=== PATIENT | female | born 1980 | race Caucasian/White ===

== ENCOUNTER 2016-09-19 08:39 | Emergency (ER) | payer BC ==
--- NOTE | 2016-09-19 09:41 | UC ---
Respiratory Complaint HPI - HPI Summary HPI Summary: ST x 1week, now with left ear pain and cough. No fever. Works in the school district. - History of Current Complaint Chief Complaint: UCRespiratory Stated Complaint: SORE THROAT,COUGH,CONGESTION,EAR PAIN Time Seen by Provider: 09/19/16 09:33 Hx Obtained From: Patient Hx Last Menstrual Period: Mirena IUD Onset/Duration: Gradual Onset, Lasting Days, Still Present Timing: Constant Severity Initially: Moderate Severity Currently: Moderate Pain Intensity: 3 Pain Scale Used: 0-10 Numeric Character: Sputum Description: - yellow Aggravating Factors: Nothing Alleviating Factors: Nothing Associated Signs And Symptoms: Positive: URI, Nasal Congestion. Negative: Fever , Wheezing, Sinus Discomfort - Risk Factors Pulmonary Embolism Risk Factors: Negative Cardiac Risk Factors: Hypertension Pseudomonas Risk Factors: Negative Tuberculosis Risk Factors: Negative - Allergies/Home Medications Allergies/Adverse Reactions: Allergies Allergy/AdvReac Type Severity Reaction Status Date / Time Penicillins Allergy Severe closes Verified 07/03/14 19:05 throat Lisinopril Allergy Unknown See Comment Verified 11/14/14 13:28 Home Medications: Home Medications amLODIPine TAB* [Norvasc TAB*] 10 mg PO DAILY 09/19/16 [History Confirmed ] PMH/Surg Hx/FS Hx/Imm Hx Cardiovascular History Of: Reports: Hypertension - Surgical History Surgical History: Yes Surgery Procedure, Year, and Place: 1982 T&A [place]. 1984 RT kidney surgery [place]. 2013 right ovarian cyst removed. - Family History Known Family History: Positive: Hypertension - Social History Occupation: Employed Full-time Lives: With Family Alcohol Use: Rare Alcohol Amount: 1 DRINK EVERY FEW MONTHS Substance Use Type: None Smoking Status (MU): Never Smoked Tobacco Have You Smoked in the Last Year: No - Immunization History Most Recent Influenza Vaccination: April 2016 Review of Systems Constitutional: Negative Skin: Negative Eyes: Negative ENT: Sore Throat, Ear Ache Respiratory: Cough Cardiovascular: Negative Gastrointestinal: Negative Genitourinary: Negative Motor: Negative Neurovascular: Negative Musculoskeletal: Negative Neurological: Negative Psychological: Negative All Other Systems Reviewed And Are Negative: Yes Physical Exam Triage Information Reviewed: Yes Appearance: Well-Appearing, No Pain Distress, Well-Nourished Vital Signs: Initial Vital Signs Temp 98.4 F 09/19/16 08:42 Pulse 86 02/24/17 08:42 Resp 16 09/19/16 08:42 BP 155/99 09/19/16 08:42 Pulse Ox 98 09/19/16 08:42 elevated BP noted, repeat improved. Takes her amlodipine at night Vital Signs Reviewed: Yes Eyes: Positive: Conjunctiva Clear ENT: Positive: Pharynx normal, TM red - left. Negative: Tonsillar swelling, Muffled/hoarse voice Neck: Positive: Supple Respiratory: Positive: Lungs clear, Normal breath sounds, No respiratory distress Cardiovascular: Positive: RRR, No Murmur, Pulses Normal, Brisk Capillary Refill Musculoskeletal: Positive: Strength Intact, ROM Intact Neurological: Positive: Alert, Muscle Tone Normal Psychological Exam: Normal Skin Exam: Normal UC Diagnostic Evaluation - Laboratory O2 Sat by Pulse Oximetry: 98 Respiratory Course/Dx - Differential Dx/Diagnosis Differential Diagnosis/HQI/PQRI: Bronchitis, Influenza, Lower Resp Infection, Sinusitis, Other - OM Provider Diagnoses: left OM Discharge - Discharge Plan Condition: Stable Disposition: HOME Prescriptions: Azithromycin TAB* [Zithromax TAB (Z-GIOVANNA) 250 mg #6 tabs] 2 tab PO .TODAY, THEN 1 DAILY #1 giovanna Patient Education Materials: Otitis Media (ED)
[2016-09-19 09:57] VITALS: BP 136/86
== END 2016-09-19 10:05 | disposition home or self-care (01) ==
LOC: UCCORT 08:39
DX: H66.92 Otitis media, unspecified, left ear (principal); I10 Essential (primary) hypertension; Z88.0 Allergy status to penicillin; Z88.8 Allergy status to other drugs, medicaments and biological substances
CPT/HCPCS: 99212; G0463

== ENCOUNTER 2016-11-20 11:46 | Emergency (ER) | payer BC ==
[2016-11-20 13:10] VITALS: BP 141/106
--- NOTE | 2016-11-20 13:22 | UC ---
Ear Complaint HPI - HPI Summary HPI Summary: patient has right ear pain, cough and runny nose for the past week - History of Current Complaint Chief Complaint: UCRespiratory Stated Complaint: COUGH,CONGESTION,BILATERAL EAR PAIN Time Seen by Provider: 11/20/16 13:10 Hx Obtained From: Patient Hx Last Menstrual Period: Mirena IUD ?: No Onset/Duration: Sudden Onset, Lasting Days Severity Initially: Moderate Severity Currently: Moderate Associated Signs/Symptoms: Positive: URI Symptoms - Allergies/Home Medications Allergies/Adverse Reactions: Allergies Allergy/AdvReac Type Severity Reaction Status Date / Time Penicillins Allergy Severe closes Verified 11/20/16 13:06 throat Lisinopril Allergy Unknown See Comment Verified 11/20/16 13:06 PMH/Surg Hx/FS Hx/Imm Hx Previously Healthy: Yes Cardiovascular History Of: Reports: Hypertension - Surgical History Surgical History: Yes Surgery Procedure, Year, and Place: 1982 T&A [place]. 1984 RT kidney surgery [place]. 2013 right ovarian cyst removed. - Family History Known Family History: Positive: Hypertension - Social History Alcohol Use: Rare Alcohol Amount: 1 DRINK EVERY FEW MONTHS Substance Use Type: None Smoking Status (MU): Never Smoked Tobacco Have You Smoked in the Last Year: No - Immunization History Most Recent Influenza Vaccination: April 2016 Review of Systems Constitutional: Negative Skin: Negative Eyes: Negative ENT: Ear Ache, Nasal Discharge Respiratory: Cough Cardiovascular: Negative Gastrointestinal: Negative Genitourinary: Negative Motor: Negative Neurovascular: Negative Musculoskeletal: Negative Neurological: Negative Psychological: Negative All Other Systems Reviewed And Are Negative: Yes Physical Exam Triage Information Reviewed: Yes Appearance: Well-Appearing, Well-Nourished, Pain Distress Vital Signs: Initial Vital Signs Temp 98.5 F 11/20/16 13:04 Pulse 90 11/20/16 13:04 Resp 16 11/20/16 13:04 BP 141/106 11/20/16 13:04 Pulse Ox 99 11/20/16 13:04 Vital Signs Reviewed: Yes Eye Exam: Normal Eyes: Positive: Conjunctiva Clear ENT: Positive: Pharyngeal erythema, Nasal congestion, TMs normal - left, TM bulging - right Dental Exam: Normal Neck exam: Normal Neck: Positive: Supple, Nontender, No Lymphadenopathy Respiratory Exam: Normal Respiratory: Positive: Chest non-tender, No respiratory distress, No accessory muscle use, Wheezing, Inspiration Cardiovascular Exam: Normal Cardiovascular: Positive: RRR, No Murmur, Pulses Normal, Brisk Capillary Refill Abdominal Exam: Normal Abdomen Description: Positive: Nontender, No Organomegaly, Soft Bowel Sounds: Positive: Present Musculoskeletal Exam: Normal Musculoskeletal: Positive: Strength Intact, ROM Intact, No Edema Neurological Exam: Normal Neurological: Positive: Alert, Muscle Tone Normal Psychological Exam: Normal Skin Exam: Normal Ear Complaint Course/Dx - Course Course Of Treatment: hx obtained, exam performed, meds reviewed treated for serous otitis - Differential Dx/Diagnosis Differential Diagnosis/HQI/PQRI: Bronchitis, Cerumen Impaction, Otitis Externa, Otitis Media, URI Provider Diagnoses: right serous otitis. wheezing Discharge - Discharge Plan Condition: Stable Disposition: HOME Prescriptions: predniSONE TAB* [Deltasone TAB*] 40 mg PO DAILY #14 tab Patient Education Materials: Serous Otitis Media (ED) Additional Instructions: 1. take the medication as prescribed. 2. Increase your fluid intake and get plenty of rest. 3. take the corisidin HBP daily after the prednisone if needed for decongesting
== END 2016-11-20 13:34 | disposition home or self-care (01) ==
LOC: UCCORT 11:46
DX: H65.91 Unspecified nonsuppurative otitis media, right ear (principal); R06.2 Wheezing; I10 Essential (primary) hypertension; Z88.0 Allergy status to penicillin; Z88.8 Allergy status to other drugs, medicaments and biological substances
CPT/HCPCS: 99212; G0463

== ENCOUNTER 2018-01-21 06:07 | Day surgery (SDC) | payer BC ==
[~2018-01-21 06:07] MED LIST: Buffered Lidocaine 0.9% SYRIN* 5 ML/SYR SYRINGE INTRADERM ONE; Famotidine IV* 10 MG/ML 2 ML (20 mg) IV ONE; Metoclopramide TAB* 10 MG PO ONE; Scopolamine 1.5 mg* PATCH TRANSDERM ONE
[2018-01-21] MEDS ORDERED: Buffered Lidocaine 0.9% SYRIN* 5 ML/SYR SYRINGE ONE (06:14)
[2018-01-21] MEDS ORDERED: Metoclopramide TAB* 10 MG ONE (06:14)
[2018-01-21] MEDS ORDERED: Scopolamine 1.5 mg* PATCH ONE (06:14)
[2018-01-21] MEDS ORDERED: Famotidine IV* 10 MG/ML 2 ML (20 mg) ONE (06:14)
[2018-01-21] MEDS ORDERED: Clindamycin 900 MG IVPREMIX(* 900 MG/50 ML SDV IV ONE (06:14)
[2018-01-21] MEDS ORDERED: Propofol* 10 MG/ML 20 ML BTL IV PUSH ONE ×2 (07:07→07:57)
[2018-01-21] MEDS ORDERED: Ketorolac INJ* 30 MG/ML 1 ML VIAL ONE (07:07)
[2018-01-21] MEDS ORDERED: Midazolam* 1 MG/ML 10 ML VIAL (10 MG) ONE (07:07)
[2018-01-21] MEDS ORDERED: KETAMINE HCL* 50 MG/ML 10 ML VIAL ONE (07:07)
[2018-01-21] MEDS ORDERED: Lidocaine 2% PF * 5 ML VIAL ONE (07:07)
[2018-01-21] MEDS ORDERED: fentaNYL* 50 MCG/ML 2 ML VIAL (100 MCG VIAL) ONE (07:07)
[2018-01-21] MEDS ORDERED: Ondansetron ODT TAB* 4 MG ONE ×2 (07:07→09:58)
[2018-01-21] MEDS ORDERED: Dexamethasone IV* 4 MG/ML 1 ML (4 MG) ONE (07:07)
[2018-01-21] MEDS ORDERED: Bupivacaine 0.5% SDV PF* 30ML VIAL ONE (07:15)
[2018-01-21] MEDS ORDERED: DiMENhydriNATE IV* 50 MG/ML VIAL IV PUSH PRN (08:03)
[2018-01-21] MEDS ORDERED: fentaNYL* 50 MCG/ML 2 ML VIAL (100 MCG VIAL) IV PRN (08:03)
[2018-01-21] MEDS ORDERED: Naloxone* 0.4 MG/ML 1 ML VIAL IV PRN (08:03)
[2018-01-21] MEDS ORDERED: oxyCODONE/Acetamin 5/325 MG* TAB PO PRN (08:03)
[2018-01-21] MEDS ORDERED: Ondansetron ODT TAB* 4 MG PO PRN (08:03)
--- NOTE | 2018-01-21 08:56 | OP ---
Operative Report - Blank - Operative Report Date of Operation: 01/21/18 Note: PATIENT: Brenda Stanford DATE OF : 1980 DATE OF SURGERY: 01/21/2018 SURGEON: Laz Herrera MD SOFTWARE DEVELOPMENT SPECIALIST: JUANA Lees, whos assistance was necessary for positioning, retraction, help with instrumentation, and closure. ANESTHESIOLOGIST: Dr. Gregg PREOPERATIVE DIAGNOSIS: Right foot hallux valgus deformity and tibial sesamoiditis/fracture POSTOPERATIVE DIAGNOSIS: Right foot hallux valgus deformity and tibial sesamoiditis/fracture OPERATION: 1. Right foot hallux valgus correction with distal soft tissue procedure, the medial eminence resection, and proximal suture button fixation. 2. Right foot tibial sesamoidectomy. ANESTHESIA: MAC IMPLANTS: Arthrex mini tightrope TOURNIQUET TIME: Less than one hour with an ankle Esmarch tourniquet SPECIMENS: None ESTIMATED BLOOD LOSS: Minimal COMPLICATIONS: none STATUS: Stable from the operating room to the recovery room and then home. INDICATIONS FOR PROCEDURE: Brenda has had persistent pain and limitations from a bunion and tibial sesamoiditis. She has tried extensive nonoperative treatment. Both operative and non-operative treatment alternatives were reviewed. Further, the nature and risks of surgery were reviewed in careful detail, in the office as well as the pre-operative holding area. Our discussions regarding the risks of surgery included, but were not limited to, infection, wound problems, nerve injury, neuroma, RSD, persistent symptoms, blood clot, recurrence of the hallux valgus deformity, hallux varus deformity, imperfect reduction, metatarsal fracture, need for further surgery, failure of the surgery, and even the remote chance of catastrophic complication, including loss of limb. DESCRIPTION OF PROCEDURE: The patient was seen in the preoperative holding unit and informed written consent was obtained. The appropriate extremity was marked. The patient was then brought to the operating room and carefully positioned on the operating room table. Anesthesia was induced. All bony prominences were padded with great care. A chlorhexidine based pre-scrub was performed followed by a chloraprep prep and drape in standard sterile fashion. A surgical safety pause was then conducted in which we confirmed the appropriate patient, extremity, planned procedure, availability of equipment, indication and administration of prophylactic antibiotics, and DVT prophylaxis in the form of a compression boot on the non-surgical extremity. I began with Esmarch exsanguination of the limb and placement of the ankle Esmarch tourniquet. An approximately 2.5cm longitudinal dorsal incision was made in the first webspace. Blunt dissection was utilized to expose the structures of the lateral first MTP joint. With a scalpel I then sharply released the adductor tendon, intermetatarsal ligament, the metatarsal-sesamoid ligament, and lateral joint capsule. After this, the hallux came readily over into varus with minimal pressure. I then made an approximately 3cm longitudinal incision over the medial aspect of the first MTP joint, centered at the first MTP joint. Dissection was carried down to the capsular layer. The dorsal medial cutaneous nerve was protected throughout. The capsule was opened in line with the skin incision. I then sharply excised the tibial sesamoid in one piece with a 15 blade scalpel. I then used an oscillating saw to perform an exostectomy of the medial eminence of the first MTP head flush with the metaphyseal flare proximally. I started the osteotomy 1mm medial to the sagittal sulcus. The dorsal medial prominence was then contoured with a rongeur. I then simulated an imbrication of the capsule, which provided excellent visual correction of the hallux valgus deformity and intermetatarsal angle. I then utilized fluoroscopy to confirm this and that the remaining lateral sesamoid was appropriately positioned under the first metatarsal head. As such, I then formally imbricated and repaired the medial first MTP joint capsule utilizing several advancing horizontal mattress sutures with #1 Vicryl. I then made an approximately 1 cm incision at the lateral border of the second metatarsal. The lateral cortex of the second metatarsal was exposed. The 1.1mm guidewire from the Arthrex mini tightrope set was passed from the lateral second metatarsal, through the second metatarsal, and through the first metatarsal to exit medially. I felt four cortices while advancing the guidewire. Then, by pulling the guidewire out medially, I shuttled a 0 vicryl passing suture through the second and first metatarsals. I then looped the suture of the Arthrex mini tightrope through the passing suture and pulled this out laterally through the second metatarsal. This acted to shuttle the mini tightrope through the first and second metatarsal. The buttons were placed flush on the medial aspect of the first metatarsal and lateral aspect of the second metatarsal, and the suture was tied over the button laterally at the second metatarsal. Fluoroscopy was used to confirm that this maintained my intermetatarsal correction. Final fluoroscopic images were then obtained. The wounds were copiously irrigated and meticulously closed in layers utilizing 3-0 Monocryl and 3-0 nylon. A sterile dressing was then applied, along with a bunion bolster. The patient was then awakened from anesthesia and transferred to the recovery room in stable condition. There were no complications. All needle and sponge counts were correct at the end of the case. ATTESTATION: I attest I was present and scrubbed and performed the critical portions of the procedure myself. POSTOPERATIVE PLAN: The patient will remain heel weightbearing for anticipated duration of 6 weeks. Followup will be in 2 weeks for likely suture removal, Steri-Strip application, and reapplication of the bunion bolster.
[2018-01-21 09:08] VITALS: BP 129/80
[2018-01-21] MEDS ORDERED: traMADol TAB* 50 MG ONE (09:29)
--- NOTE | 2018-01-22 06:24 | RAD ---
CPT II Codes: G9500 INDICATION: Right hallux valgus TECHNIQUE: Intraoperative fluoroscopy was provided during hallux valgus deformity repair. FINDINGS: 4 spot films depict surgical devices placed along the medial margin of the first metatarsal on lateral margin of the second metatarsal. Fluoroscopy time: 30 seconds IMPRESSION: As above.
[2018-01-24] MEDS ORDERED: Scopolamine PATCH Remove* 1 NOTE MISC PATCH OFF ONE (06:00)
== END 2018-01-21 10:09 | disposition home or self-care (01) ==
LOC: OR 06:07
PROVIDERS: ATTEND Orthopaedic Surgery
DX: M20.11 Hallux valgus (acquired), right foot (principal); M25.871 Other specified joint disorders, right ankle and foot; I10 Essential (primary) hypertension; I34.1 Nonrheumatic mitral (valve) prolapse
CPT/HCPCS: 76001; 81025; A9270-GY; C1713; J1100; J1885; J2250; J2704; J3010

== ENCOUNTER 2018-09-13 10:29 | Emergency (ER) | payer BC ==
[2018-09-13 11:48] VITALS: BP 127/79
--- NOTE | 2018-09-13 12:06 | UC ---
Throat Pain/Nasal Alek HPI - HPI Summary HPI Summary: 38-year-old woman comes in with a chief complaint of sinusitis symptoms for 4 days. She's got sinus pressure yellow rhinorrhea. No recent fevers. She does have some postnasal drip and a slight dry cough no bodyaches no shortness of breath. She has been really trying any [id number] medications as with her hypertension symptoms arrack with her blood pressure. - History of Current Complaint Chief Complaint: UCRespiratory Stated Complaint: SINUSES Time Seen by Provider: 09/13/18 11:59 Hx Last Menstrual Period: DOES NOT HAVE REG PERIODS, HAS AN IUD Pain Intensity: 5 - Allergies/Home Medications Allergies/Adverse Reactions: Allergies Allergy/AdvReac Type Severity Reaction Status Date / Time Penicillins Allergy Severe closes Verified 09/13/18 11:41 throat Home Medications: Home Medications Cyanocobalamin TAB* [Vitamin B12 TAB*] 1,000 mcg PO DAILY 09/13/18 [History Confirmed 09/13/18] Ergocalciferol (Vitamin D2) [Vitamin D2] 50,000 unit PO 09/13/18 [History] Ibuprofen TAB* [Advil TAB*] 400 mg PO Q6H PRN 09/13/18 [History Confirmed ] PMH/Surg Hx/FS Hx/Imm Hx Previously Healthy: Yes Cardiovascular History: Hypertension - Surgical History Surgical History: Yes Surgery Procedure, Year, and Place: 1982 T&A [place]. 1984 RT kidney surgery - [facility] - [place]. 2013 right ovarian cyst removed. [facility] E[facility] SURG. 2015 - VAGINAL MESH SLING - SURGICALLY IMPLANTED. - Family History Known Family History: Positive: Hypertension - Social History Alcohol Use: Rare Alcohol Amount: 1 DRINK EVERY FEW MONTHS Substance Use Type: None Smoking Status (MU): Never Smoked Tobacco Have You Smoked in the Last Year: No - Immunization History Most Recent Influenza Vaccination: April 2016 Review of Systems All Other Systems Reviewed And Are Negative: Yes Constitutional: Positive: Negative Skin: Positive: Negative Eyes: Positive: Negative ENT: Positive: Sore Throat, Nasal Discharge, Sinus Congestion, Sinus Pain/ Tenderness Respiratory: Positive: Negative Cardiovascular: Positive: Negative Gastrointestinal: Positive: Negative Motor: Positive: Negative Neurovascular: Positive: Negative Musculoskeletal: Positive: Negative Neurological: Positive: Negative Psychological: Positive: Negative Is Patient Immunocompromised?: No Physical Exam Triage Information Reviewed: Yes Appearance: No Pain Distress, Well-Nourished, Ill-Appearing - MILD Vital Signs: Initial Vital Signs Temp 98.2 F 09/13/18 11:43 Pulse 84 09/13/18 11:43 Resp 16 09/13/18 11:43 BP 127/79 09/13/18 11:43 Pulse Ox 100 09/13/18 11:43 Vital Signs Reviewed: Yes Eye Exam: Normal ENT: Positive: Pharyngeal erythema, Nasal congestion, Nasal drainage, TMs normal Neck exam: Normal Neck: Positive: Supple Respiratory: Positive: Lungs clear, Normal breath sounds, No respiratory distress Cardiovascular: Positive: RRR Musculoskeletal Exam: Normal Musculoskeletal: Positive: Strength Intact, ROM Intact Neurological Exam: Normal Neurological: Positive: Alert, Muscle Tone Normal Psychological Exam: Normal Psychological: Positive: Age Appropriate Behavior Skin Exam: Normal Throat Pain/Nasal Course/Dx - Course Course Of Treatment: DISCUSSED VIRAL VERSES BACTERIAL INFECTION AND THE ROLE OF ANTIBIOTICS. THE PATIENT WISHES TO BE ON ANTIBIOTIC AT THIS TIME. - Differential Dx/Diagnosis Provider Diagnosis: Sinusitis Discharge - Sign-Out/Discharge Documenting (check all that apply): Patient Departure All imaging exams completed and their final reports reviewed: No Studies - Discharge Plan Condition: Stable Disposition: HOME Prescriptions: DOXYcycline CAP(*) [DOXYcycline 100MG CAP(*)] 100 mg PO BID #20 cap Patient Education Materials: Sinusitis (ED) Referrals: Rosa Gallego MD [Primary Care Provider] - Additional Instructions: FOLLOW UP WITH YOUR DOCTOR IF NOT COMPLETELY IMPROVED. GET RECHECKED FOR ANY WORSENING OF YOUR CONDITION OR QUESTIONS OR CONCERNS. - Billing Disposition and Condition Condition: STABLE Disposition: Home
== END 2018-09-13 12:14 | disposition home or self-care (01) ==
LOC: UCCORT 10:29
DX: J32.9 Chronic sinusitis, unspecified (principal); I10 Essential (primary) hypertension; Z88.0 Allergy status to penicillin
CPT/HCPCS: 99212; G0463

== ENCOUNTER 2019-10-09 13:44 | Emergency (ER) | payer BC ==
--- OUTSIDE RECORDS SUMMARY | 2019-10-09 15:29 | XMS REPORT | Summary of Care ---
:1980 Author Organization [facility] Address [address] [place] [address] Care Team Providers Name Role Phone Kera Damon MD Primary Care Provider Reason for Visit Reason Comments Gynecologic Exam f/u Denies any c/o Hypertension f/u BP: Physical f/u last PE in 04/2018; labs 10/2018 Encounter Details Date Type Department Care Team Description 09/12/2019 [facility] Practice Kera Carreon MD Essential hypertension; [address] B12 deficiency; [place] [address] [place] [address] Vitamin D deficiency; [phone] Screening for cervical cancer; Screening mammogram, encounter for Allergies Active Allergy Reactions Severity Noted Date Comments Amlodipine Swelling Medium 05/06/2017 Facial swelling Penicillins Swelling High 09/14/2008 Throat swells documented as of this encounter (statuses as of 09/12/2019) Medications Medication Sig Dispensed Refills Start Date End Date Status Levonorgestrel by Intrauterine 0 Active (MIRENA, 52 MG,) 20 route. MCG/24HR Intrauterine IUD Cyanocobalamin (B-12) Place 1,000 mcg 150 Tab 0 02/03/2018 Active 500 MCG Oral under tongue DAILY. TabIndications: B12 deficiency calcium 500 MG Oral Take 1 Tab by mouth 90 Tab 3 02/03/2018 Active TabIndications: DAILY. Vitamin D deficiency ergocalciferol TAKE 1 CAPSULE BY 8 Cap 11 11/26/2018 Active (DRISDOL, CALCIFEROL, MOUTH TWICE A WEEK VITAMIN D) 03504 AT BEDTIME units Oral CapIndications: Vitamin D deficiency lisinopril-hydrochlor Take 1 Tab by mouth 30 Tab 11 12/13/2018 Active othiazide DAILY. (ZESTORETIC, PRINZIDE) 20-12.5 MG Oral Tab documented as of this encounter (statuses as of 09/12/2019) Active Problems Problem Noted Date B12 deficiency 11/11/2018 Vitamin D deficiency 11/11/2018 RIGO (stress urinary incontinence, female) 04/14/2016 Essential hypertension 09/14/2008 Mitral valve prolapse 09/14/2008 Heart murmur 09/14/2008 Ureterocele - congenital 09/14/2008 Migraine headache 09/14/2008 PONV (postoperative nausea and vomiting) documented as of this encounter (statuses as of 09/12/2019) Immunizations Name Administration Dates Next Due Influenza (IM) Preservative Free 04/24/2019, 04/24/2019, 05/13/2018 Influenza Vaccine Split 04/26/2016 Influenza Vaccine Whole 05/09/2009 TDAP Vaccine 08/14/2016 documented as of this encounter Social History Tobacco Use Types Packs/Day Years Used Date Never Smoker Smokeless Tobacco: Never Used Alcohol Use Drinks/Week oz/Week Comments No rare Sex Assigned at Date Recorded Not on file documented as of this encounter Last Filed Vital Signs Vital Sign Reading Time Taken Comments Blood Pressure 128/70 09/12/2019 1:26 PM EST Pulse 91 09/12/2019 1:26 PM EST Temperature - - Respiratory Rate - - Oxygen Saturation 98% 09/12/2019 1:26 PM EST Inhaled Oxygen Concentration - - Weight 84.8 kg (187 lb) 09/12/2019 1:26 PM EST Height 160 cm (5' 3") 09/12/2019 1:26 PM EST Body Mass Index 33.13 09/12/2019 1:26 PM EST documented in this encounter Patient Instructions Patient InstructionsKera Damon MD - 09/12/2019 1:20 PM CANDIDO did your physical exam and pap smear today. I ordered laboratory tests and will send results when in. I ordered your first mammogram Consider a change to over the counter Vitamin D if level is normal today. DIET AND EXERCISE: Exercise is recommended 150 minutes weekly: 30 minutes five days a week of moderate exercise such as walking. In addition is it recommended you have two days weekly of working all your major muscle groups (arms, legs) such as with weight lifting or other exercise. I recommend a well balanced healthy diet, portion control, drink plenty of fluids. The Mediterranean diet is an excellent diet. Be sure to get adequate sleep at night, 8 hours. . Follow up yearly for physical exam, sooner if ill. documented in this encounter Progress Notes Kera Damon MD - 09/12/2019 1:20 PM EST Nursing Notes: Leonid Cartagena LPN 09/12/2019 1:27 PM Signed Chief Complaint Patient presents with ? Gynecologic Exam f/u Denies any c/o ? Hypertension f/u BP: ? Physical f/u last PE in 04/2018; labs 10/2018 Leonid Cartagena LPN Subjective: Brenda Stanford is a 39-y.o. year old female who presents for annual female exam. Dr Garcia changed her Mirena 04/2019 LMP: 04/2019 She has hypertension, well controlled. Patient Active Problem List Diagnosis ? Essential hypertension ? Mitral valve prolapse ? Heart murmur ? Ureterocele - congenital ? Migraine headache ? RIGO (stress urinary incontinence, female) ? PONV (postoperative nausea and vomiting) ? B12 deficiency ? Vitamin D deficiency Acute new problems include: None Health maintainance concerns include: Health Maintenance Topic Date Due ? PAP SMEAR 08/14/2019 ? DEPRESSION SCREENING 09/12/2020 ? DTaP/Tdap/Td Vaccines (2 - Tdap) 08/14/2026 ? INFLUENZA VACCINE Completed ? HEPATITIS A IMMUNIZATION SERIES Aged Out ? HPV IMMUNIZATION SERIES Aged Out ? MENINGOCOCCAL VACCINE IMM Aged Out ? PNEUMOCOCCAL 0-64 YRS Aged Out Immunization History Administered Date(s) Administered ? Influenza (IM) Preservative Free 05/13/2018, 04/24/2019, 04/24/2019 ? Influenza Vaccine Split 04/26/2016 ? Influenza Vaccine Whole 05/09/2009 ? TDAP Vaccine 08/14/2016 Office Visit on 11/11/2018 Component Date Value Ref Range Status ? Vitamin D 25 HYDROXY 11/11/2018 35.0 32.0 - 100.0 ng/ml Final ? Sodium 11/11/2018 139 134 - 145 mmol/L Final ? Potassium 11/11/2018 4.5 3.5 - 5.1 mmol/L Final ? Chloride 11/11/2018 105 98 - 107 mmol/L Final ? CO2 11/11/2018 23 22 - 30 mmol/L Final ? Calcium 11/11/2018 9.1 8.3 - 10.1 mg/dl Final ? Albumin 11/11/2018 4.4 3.5 - 5.0 g/dl Final ? BUN 11/11/2018 9 7 - 17 mg/dl Final ? Creatinine 11/11/2018 0.7 0.7 - 1.2 mg/dl Final ? Glucose 11/11/2018 91 70 - 99 mg/dl Final ? Total Protein 11/11/2018 7.6 6.3 - 8.2 g/dl Final ? Total Bilirubin 11/11/2018 0.5 0.0 - 1.1 MG/DL Final ? AST 11/11/2018 39 15 - 46 U/L Final ? ALT 11/11/2018 47 9 - 52 U/L Final ? Alkaline Phosphatase 11/11/2018 53 40 - 150 U/L Final ? eGFR 11/11/2018 >60 See Interpretation Below ml/min/1.73ml Sq Final Estimated GFR Interpretation: Above 60ml/min/1.73m2 = Normal Renal Function 30-59 ml/min/1.73m2 = Stage 3 Chronic Kidney Disease 15-29 ml/min/1.73m2 = Stage 4 Chronic Kidney Disease Less than 15 ml/min/1.73m2 = Stage 5 Chronic Kidney Disease The GFR value is calculated using the Modification of Diet in Renal Disease ( MDRD) Study Equation which can be found at: https://www.kidney.org/content/tlej-ptopg-lpcateib ? BUN/Creatinine Ratio 11/11/2018 13 6 - 22 RATIO Final ? Anion Gap 11/11/2018 11 3 - 11 mmol/L Final ? A/G Ratio 11/11/2018 1.4 0.8 - 2.0 ratio Final ? Cholesterol 11/11/2018 190 <200 mg/dl Final ? HDL Cholesterol 11/11/2018 44* >50 mg/dl Final ? Triglycerides 11/11/2018 132 <150 mg/dl Final ? LDL Cholesterol 11/11/2018 120* <100 MG/DL Final ? Cholesterol / HDL Ratio 11/11/2018 4.3 RATIO Final ? LDL / HDL Ratio 11/11/2018 2.7 Final ? Non-HDL Cholesterol 11/11/2018 146* 0 - 130 MG/DL Final Past Medical History: Diagnosis Date ? Migraine headache 09/14/2008 ? Mitral valve prolapse 09/14/2008 ? PONV (postoperative nausea and vomiting) ? RIGO (stress urinary incontinence, female) 04/14/2016 ? Unspecified essential hypertension 09/14/2008 ? Ureterocele - congenital 09/14/2008 ? VHD (valvular heart disease) MVP, mild; Dr. Yvrose armstrong, [place] [facility] Current Outpatient Medications Medication Sig ? calcium 500 MG Oral Tab Take 1 Tab by mouth DAILY. ? Cyanocobalamin (B-12) [address] 1,000 mcg under tongue DAILY. ? ergocalciferol (DRISDOL, CALCIFEROL, VITAMIN D) 81633 units Oral Cap TAKE 1 CAPSULE BY MOUTHTWICE A WEEK AT BEDTIME ? Levonorgestrel (MIRENA, 52 MG,) 20 MCG/24HR Intrauterine IUD by Intrauterine route. ? lisinopril-hydrochlorothiazide (ZESTORETIC, PRINZIDE) 20-12.5 MG Oral Tab Take 1 Tab by mouth DAILY. No current facility-administered medications for this visit. Penicillins and Norvasc [amlodipine] Social History Tobacco Use ? Smoking status: Never Smoker ? Smokeless tobacco: Never Used Substance Use Topics ? Alcohol use: No Comment: rare ? Drug use: No Family History Problem Relation Age of Onset ? Cancer Paternal Uncle prostate cancer ? Heart Disease Mother ? Diabetes Mother ? Hypertension Mother ? Heart Disease Father hypertensive cardiovascular disease ? Hypertension Father ? Heart Father 38 ? Prostate Cancer Father ? Heart Paternal Uncle OR @42 ? Diabetes Maternal Grandmother ? Breast Cancer Maternal Grandmother ? Genetic Maternal Grandmother ALS ? Diabetes Maternal Grandfather ? Psychiatry Sister depression ? No Known Problems Brother ? No Known Problems Son ? No Known Problems Brother ? No Known Problems Son ? Heart Paternal Grandmother Review of Systems - General ROS: negative for - chills or fever, unexpected weight changes ENT ROS: negative for - headaches, nasal congestion, nasal discharge, sinus pain , sore throat. Now needs reading glasses. Respiratory ROS: negative for - cough, shortness of breath Cardiovascular ROS: negative for - chest pain Gastrointestinal ROS: no abdominal pain, change in bowel habits Genito-Urinary ROS: no dysuria Psych: Denies depression Objective: BP 128/70 (BP Location: Left arm, Patient Position: Sitting) Pulse 91 Ht 5' 3 " (1.6 m) Wt 187 lb (84.8 kg) SpO2 98% BMI 33.13 kg/m2 Physical Examination: General appearance - alert, well appearing, and in no distress Mental status - alert, oriented to person, place, and time, normal mood, behavior, speech, dress, motor activity, and thought processes Eyes - pupils equal and reactive, extraocular eye movements intact, sclera anicteric Ears - bilateral TM's and external ear canals normal Neck - supple, no significant adenopathy, carotids upstroke normal bilaterally, no bruits, thyroid exam: thyroid is normal in size without nodules or tenderness , no neck masses palpated. Chest/Lungs - clear to auscultation, no wheezes, rales or rhonchi, symmetric air entry, good aeration Heart - normal rate, regular rhythm, normal S1, S2, no murmurs, rubs, clicks or gallops Abdomen - soft, nontender, nondistended, no masses or organomegaly, bowel sounds normal Neurological - alert, oriented, normal speech, no gross focal findings or movement disorder noted Extremities - peripheral pulses normal, no pedal edema, no clubbing or cyanosis Pelvic exam External genitalia normal. Vagina and cervix normal without abnormal discharge. No cervical motion tenderness. Uterus normal size without tenderness Adnexa non-tender without masses Breasts are symmetric. No dominant, discrete, fixed or suspicious masses are noted. No skin or nipple changes or axillary nodes. Examination chaperoned by Sasha Johnson MA Assessment/Plan: Healthy female ICD-9-CM ICD-10-CM 1. Well adult exam V70.0 Z00.00 2. Essential hypertension 401.9 I10 COMPREHENSIVE METABOLIC PANEL LDL, DIRECT 3. B12 deficiency 266.2 E53.8 VITAMIN B12 / FOLATE 4. Vitamin D deficiency 268.9 E55.9 VITAMIN D 25 HYDROXY (GONZALES) 5. Screening for cervical cancer V76.2 Z12.4 PAP SMEAR THINPREP AND HPV 6. Screening mammogram, encounter for V76.12 Z12.31 MAMMO SCREENING TOMOSYNTHESIS BILATERAL 1. Routine Screening: Pap smear: yes Mammography: yes Cholesterol: yes Screen for Type 2 DM w/fasting plasma glucose: Yes 2. Immunizations today: None, up to date Patient Instructions I did your physical exam and pap smear today. I ordered laboratory tests and will send results when in. I ordered your first mammogram DIET AND EXERCISE: Exercise is recommended 150 minutes weekly: 30 minutes five days a week of moderate exercise such as walking. In addition is it recommended you have two days weekly of working all your major muscle groups (arms, legs) such as with weight lifting or other exercise. I recommend a well balanced healthy diet, portion control, drink plenty of fluids. The Mediterranean diet is an excellent diet. Be sure to get adequate sleep at night, 8 hours. . Follow up yearly for physical exam, sooner if ill. Author: Kera Damon MD 09/12/2019 13:48 documented in this encounter Plan of Treatment Name Type Priority Associated Diagnoses Order Schedule PAP SMEAR THINPREP AND Lab Routine Screening for cervical Ordered: 2019 HPV cancer VITAMIN D 25 HYDROXY Lab Routine Vitamin D deficiency Expected: (CHRISTIAN) 09/12/2019 (Approximate), Expires: 09/12/2020 VITAMIN B12 / FOLATE Lab Routine B12 deficiency Expected: 09/12/2019 (Approximate), Expires: 09/12/2020 COMPREHENSIVE METABOLIC Lab Routine Essential hypertension Expected: PANEL 09/12/2019 (Approximate), Expires: 09/12/2020 LDL, DIRECT Lab Routine Essential hypertension Expected: 09/12/2019 (Approximate), Expires: 09/12/2020 MAMMO SCREENING Imaging Routine Screening mammogram, Expected: TOMOSYNTHESIS BILATERAL encounter for 09/12/2019, Expires: 12/10/2020 Health Maintenance Due Date Last Done Comments PAP SMEAR 08/14/2019 08/14/2016, 08/14/2016, 08/14/2016 DEPRESSION SCREENING 09/12/2020 09/12/2019 DTaP/Tdap/Td Vaccines (2 - 08/14/2026 08/14/2016 Tdap) INFLUENZA VACCINE Completed 04/24/2019, 05/13/2018, 04/26/2016, Additional history exists HEPATITIS A IMMUNIZATION Aged Out No longer eligible SERIES based on patient's age to complete this topic HPV IMMUNIZATION SERIES Aged Out No longer eligible based on patient's age to complete this topic MENINGOCOCCAL VACCINE IMM Aged Out No longer eligible based on patient's age to complete this topic PNEUMOCOCCAL 0-64 YRS Aged Out No longer eligible based on patient's age to complete this topic documented as of this encounter Goals Goal Patient Goal Associated Recent Patient-Stated? Author Type Problems Progress Blood Pressure Blood 128/70 No Marisol, < 140/90 Pressure (09/12/2019 Kera Carreon, 1:26 PM EST) Note: This is an individualized treatment (blood pressure) goal for Brenda Stanford: Displayed above (on the left) is your goal for blood pressure control. Your most recent blood pressure is also shown above, on the right. You should try to achieve blood pressures that are lower than your goal listed above (on the left). Weight loss vs. 18 Lifestyle 0 (09/12/2019 1:26 PM No Kera Damon mo max (lbs) >= 10 EST) Note: This is an individualized lifestyle goal for Brenda Stanford: Your body mass index (BMI) is more than 30. You should lose weight. A reasonable starting goal is to lose 10 pounds. Displayed above is how many pounds you have lost thus far towards your 10 pound weight loss goal. Take all prescribed medications as Self-management Kera Covarrubias MD directed Note: This is an individualized self-management goal for Brenda Stanford: Please take all prescribed medications as directed. 1. Do not skip doses. If you cannot afford your medications, talk with your doctor. 2. Use a pill reminder system such as a pill box if needed. Your pharmacist can help you with this. 3. Contact your Pharmacy 5 days before your medication runs out. If you cannot take your medications for any reasons, talk with your doctor. 4. Please bring all of your medication bottles and inhalers (or a list of all your medications/inhalers) with you to every visit. Potential barriers to meeting all of your care plan goals will continue to be addressed on an ongoing basis. documented as of this encounter Implants Implanted Type Area Floral Merchandiser Device Shelf Model / Identifier Expiration Serial / Date Hayden Jackson - [id number] N/A: Urethra BOSTON [id number] / Implanted: Qty: 1 on 04/30/2016 by Hong Craig MD at [facility] [employer] / [id number] documented as of this encounter Results Not on filedocumented in this encounter Visit Diagnoses Diagnosis Essential hypertension Unspecified essential hypertension B12 deficiency Other B-complex deficiencies Vitamin D deficiency Unspecified vitamin D deficiency Well adult exam Routine general medical examination at a health [facility] facility Screening for cervical cancer Screening for malignant neoplasm of the cervix Screening mammogram, encounter for documented in this encounter Insurance Payer Benefit Plan / Subscriber ID Effective Dates Phone Address Type Group [employer] ACCESS [id number] 01/24/2014-Present [facility] CARE PPO Guarantor Name Account Type Relation to Date of Phone Billing Patient Address AbdoulayeBrenda Personal/Family 1980 [address] (Home) [facility] [phone] [place], [place] (Work) [id number] documented as of this encounter
--- NOTE | 2019-10-09 15:30 | UC ---
Throat Pain/Nasal Alek HPI - HPI Summary HPI Summary: 39 yo female presents with sinus symptoms. She tells me that over the last week she has had sinus pain/pressure/congestion with post nasal drip. Has been taking ibuprofen for her discomfort, but symptoms are continuing. [place] feverish yesterday and today, but did not take her temperature. Denies sore throat, cough , rash, body aches. - History of Current Complaint Stated Complaint: HEAD CONGESTION, COUGH Time Seen by Provider: 10/09/19 15:29 Hx Obtained From: Patient Hx Last Menstrual Period: DOES NOT HAVE REG PERIODS, HAS AN IUD Onset/Duration: Gradual Onset Severity: Moderate Pain Intensity: 6 Pain Scale Used: 0-10 Numeric - Allergies/Home Medications Allergies/Adverse Reactions: Allergies Allergy/AdvReac Type Severity Reaction Status Date / Time Penicillins Allergy Severe closes Verified 10/09/19 15:34 throat Home Medications: Home Medications Levonorgestrel (IUD) (NF) [Mirena (NF)] 20 mcg DAILY 11/14/14 [History Confirmed 10/09/19] Lisinopril/HCTZ /12.5(NF) [Zestoretic /.5(NF)] 1 tab PO QAM 01/14/18 [ History Confirmed 10/09/19] Cyanocobalamin TAB* [Vitamin B12 TAB*] 1,000 mcg PO DAILY 09/13/18 [History Confirmed 10/09/19] Ergocalciferol (Vitamin D2) [Vitamin D2] 50,000 unit PO DAILY 09/13/18 [History Confirmed 10/09/19] Ibuprofen TAB* [Advil TAB*] 400 mg PO Q6H PRN 09/13/18 [History Confirmed ] Azithromycin TAB* [Zithromax TAB (Z-GIOVANNA) 250 mg #6 tabs] 2 tab PO .TODAY, THEN 1 DAILY #1 giovanna 10/09/19 [Rx] PMH/Surg Hx/FS Hx/Imm Hx Cardiovascular History: Hypertension - Surgical History Surgical History: Yes Surgery Procedure, Year, and Place: 1982 T&A JOSSE. 1984 RT kidney surgery - REATTACHED URETERS - JOSSE. 2013 right ovarian cyst removed. LASER EYE SURG. 2016 - VAGINAL MESH SLING - SURGICALLY IMPLANTED. - Family History Known Family History: Positive: Hypertension - Social History Occupation: Employed Full-time Lives: With Family Alcohol Use: Rare Alcohol Amount: 1 DRINK EVERY FEW MONTHS Substance Use Type: None Smoking Status (MU): Never Smoked Tobacco Have You Smoked in the Last Year: No - Immunization History Most Recent Influenza Vaccination: April 2016 Review of Systems All Other Systems Reviewed And Are Negative: No Constitutional: Positive: Negative Skin: Positive: Negative Eyes: Positive: Negative ENT: Positive: Nasal Discharge, Sinus Congestion, Sinus Pain/Tenderness Respiratory: Positive: Negative Cardiovascular: Positive: Negative Gastrointestinal: Positive: Negative Neurological/Mental Status: Positive: Negative Psychological: Positive: Negative Physical Exam - Summary Physical Exam Summary: GENERAL: NAD. WDWN. No pain distress. SKIN: No rashes, sores, lesions, or open wounds. HEENT: Head: AT/NC Eyes: EOM intact. Conjunctiva clear without inflammation or discharge. Ears: Hearing grossly normal. TMs intact, no bulging, erythema, or edema. Nose: Nasal mucosa mildly swollen and erythematous with yellow/ clear discharge. TTP maxillary and frontal sinus. Positive post nasal drip Throat: Posterior oropharynx without exudates, erythema, or tonsillar enlargement. Uvula midline. NECK: Supple. Nontender. No lymphadenopathy. CHEST: CTAB. No r/r/w. No accessory muscle use. Breathing comfortably and in no distress. CV: RRR. Pulses intact. NEURO: Alert. PSYCH: Age appropriate behavior. Triage Information Reviewed: Yes Vital Signs: Vital Signs: Temp Pulse Resp BP Pulse Ox 97.8 F 87 18 108/61 100 10/09/19 15:30 10/09/19 15:30 10/09/19 15:30 10/09/19 15:30 10/09/19 15:30 Vital Signs Reviewed: Yes Throat Pain/Nasal Course/Dx - Course Course Of Treatment: Sinusitis - Differential Dx/Diagnosis Provider Diagnosis: Sinusitis Discharge ED - Sign-Out/Discharge Documenting (check all that apply): Patient Departure All imaging exams completed and their final reports reviewed: No Studies - Discharge Plan Condition: Stable Disposition: HOME Prescriptions: Azithromycin TAB* [Zithromax TAB (Z-GIOVANNA) 250 mg #6 tabs] 2 tab PO .TODAY, THEN 1 DAILY #1 giovanna Patient Education Materials: Sinusitis (ED) Referrals: Rosa Gallego MD [Primary Care Provider] - Additional Instructions: If you develop a fever, shortness of breath, chest pain, new or worsening symptoms - please call your PCP or go to the ED immediately. - Billing Disposition and Condition Condition: STABLE Disposition: Home
[2019-10-09 15:34] VITALS: BP 108/61
== END 2019-10-09 16:00 | disposition home or self-care (01) ==
LOC: UCCORT 13:44
DX: J32.9 Chronic sinusitis, unspecified (principal); I10 Essential (primary) hypertension; Z88.0 Allergy status to penicillin; Z79.899 Other long term (current) drug therapy
CPT/HCPCS: 99212; G0463